=== PATIENT | female | born 1930 | race African-American/Black ===

== ENCOUNTER 2019-06-14 00:51 | Inpatient (IN) | payer OTHER ==
[~2019-06-14] VITALS: Ht 172.7 cm; Wt 75.1 kg
[2019-06-14 00:53] VITALS: BP 150/91
[2019-06-14] MEDS ORDERED: METFORMIN HCL500 M3 PO (01:06)
[2019-06-14] MEDS ORDERED: AMARYL2 MG PO (01:07)
[2019-06-14] MEDS ORDERED: LEVO-T50 MCG PO (01:08)
[2019-06-14] MEDS ORDERED: AMLODIPINE BESY10 MG PO (01:08)
[2019-06-14] MEDS ORDERED: KAPSPARGO SPRI100 MG PO (01:09)
[2019-06-14] MEDS ORDERED: SIMVASTATIN80 MG PO (01:10)
[2019-06-14] MEDS ORDERED: LOSARTAN POTAS100 MG PO (01:11)
[2019-06-14] MEDS ORDERED: ALLOPURINOL 10100 M3 PO (01:12)
[2019-06-14] MEDS ORDERED: AMITRIPTYLINE100 MG PO (01:12)
[2019-06-14] MEDS ORDERED: CLARITIN10 MG PO (01:12)
[2019-06-14] MEDS ORDERED: VENTOLIN HFA 1818 GM INH (01:13)
[2019-06-14] MEDS ORDERED: FLOVENT DISKU100 MCG INH (01:14)
[2019-06-14 01:15] LABS: ABSOLUTE EOSINOPHILS 0.4 thou/uL (0.0-0.7); ABSOLUTE LYMPHOCYTES 2.5 thou/uL (0.8-5.3); ABSOLUTE MONOCYTES 0.9 thou/uL (0.0-1.2); ABSOLUTE NEUTROPHILS 3.4 thou/uL (1.6-8.1); BASOPHILS 0.6 %; EOSINOPHILS 5.7 %; HEMATOCRIT 35.7 % (37.0-47.0); HEMOGLOBIN 11.8 gm/dL (12.0-15.0); MCH 28.4 pg (26.0-34.0); MCHC 32.9 g/dL (28.0-37.0); MCV 86.3 fL (80.0-100.0); MONOCYTES 13.1 %; MPV 7.6 fl. (7.2-11.1); NUCLEATED RBCS 0 /100WBC; PLATELET COUNT* 260 thou/uL (150-400); POLYS 46.6 %; RBC 4.14 mil/uL (4.20-5.00); RDW-CV 15.3 % (10.5-14.5); WBC 7.2 thou/uL (4.0-11.0)
[2019-06-14] MEDS ORDERED: VITAMIN B12-FO1 EAC1 PO (01:15)
[2019-06-14] MEDS ORDERED: SUPER THERAVIT1 EACH PO (01:15)
[2019-06-14] MEDS ORDERED: ASA81BEC PO (01:16)
[2019-06-14] MEDS ORDERED: CALCIUM500 MG PO (01:16)
[2019-06-14] MEDS ORDERED: NITROSTAT0.4 M1 SUBLING (01:17)
[2019-06-14] MEDS ORDERED: FLONASE 0.05%50 MCG NASAL (01:17)
[2019-06-14 01:25] LABS: CALCIUM 9.6 mg/dL (8.5-10.1); CREATININE 1.2 mg/dL (0.6-1.3); POTASSIUM 3.4 mmol/L (3.5-5.1)
[2019-06-14 01:28] LABS: PROTIME 10.2 Seconds (9.20-11.50)
[2019-06-14 01:35] LABS: ALBUMIN 3.6 g/dL (3.4-5.0); TOTAL BILIRUBIN 0.2 mg/dL (<0.1-1.0)
[2019-06-14 04:00] VITALS: BP 160/78
[2019-06-14 07:22] LABS: CHOLESTEROL 114 mg/dL (<200); HDL CHOLESTEROL 47 mg/dL (>40); LDL CHOLESTEROL 45 mg/dL (<100); TC:HDL 2.4 Ratio (Not establshd); TRIGLYCERIDE 111 mg/dL (<150); VLDL 22 mg/dL (<40)
[2019-06-14 07:24] LABS: SERUM ASSESSMENT Clear
[2019-06-14 08:00] VITALS: BP 143/69
[2019-06-14 11:48] VITALS: BP 145/71
--- NOTE | 2019-06-14 14:49 | EKG ---
[place] [address] ELECTROCARDIOGRAM REPORT Name: JOSE OKEEFE Room: [address] ADM IN .R.#: [id number] Admission: 06/14/19 Attend Phys: Nicole Gray MD Discharge: Date of : 34 Report #: [id number] THIS REPORT FOR: //name// [facility] ED Test Date: 2019-06-14 Test Time: 00:55:02 Pat Name: JSOE OKEEFE Department: Room: [facility] Gender: F Nsh Teacher: : 1930 Requested By: Lucrecia Perez Order Number: [id number] MD: Kt Sprague Measurements Intervals [place] Rate: 110 P: 60 CT: 179 QRS: -34 QRSD: 95 T: 77 QT: 334 QTc: 452 Interpretive Statements Sinus tachycardia Possible left atrial enlargement Left anterior fascicular block Left ventricular hypertrophy No previous ECG available for comparison Electronically Signed On 06-14-2019 14:49:22 SCANNING CLERK by Kt Sprague [email or web address] <ELECTRONICALLY SIGNED> By: Kt Sprague MD, [facility] 06/14/19 1449 0055 0055 Kt Sprague MD, FAC /EPI
[2019-06-14 16:00] VITALS: BP 111/60
[2019-06-14 20:00] VITALS: BP 118/62
[2019-06-15] VITALS: BP 132/61
[2019-06-15 04:00] VITALS: BP 139/64
[2019-06-15 05:14] LABS: HEMATOCRIT 32.5 % (37.0-47.0); HEMOGLOBIN 10.7 gm/dL (12.0-15.0); MCH 28.5 pg (26.0-34.0); MCV 86.5 fL (80.0-100.0); MPV 7.6 fl. (7.2-11.1); RBC 3.76 mil/uL (4.20-5.00); RDW-CV 15.3 % (10.5-14.5); WBC 5.4 thou/uL (4.0-11.0)
[2019-06-15 05:37] LABS: ANION GAP 8 mmol/L (7-16); BUN 16 mg/dL (7-18); CALCIUM 9.3 mg/dL (8.5-10.1); CHLORIDE 106 mmol/L (98-107); CO2 27 mmol/L (21-32); GLUCOSE 107 mg/dL (70-99); POTASSIUM 3.7 mmol/L (3.5-5.1); SODIUM 141 mmol/L (136-145); TROPONIN-I LEVEL <0.06 ng/mL (<0.06)
[2019-06-15 07:56] VITALS: BP 139/69
[2019-06-15 12:04] VITALS: BP 126/66
--- NOTE | 2019-06-15 13:25 | CON ---
[address] [address] CONSULTATION Name: JOSE OKEEFE Room: [address] IN M.R.#: [id number] Admission: 06/14/19 Attend Phys: Nicole Gray MD Discharge: Date of : 32 Report #: [id number] THIS REPORT FOR: //name// CC: James Gray DATE OF SERVICE: 06/14/2019 INDICATION: Chest pain. HISTORY OF PRESENT ILLNESS: The patient is an 88-year-old -I[place]ic female who reports a history of myocardial infarction on 03/12/2001. She reports at least 2 episodes of angiography. She is uncertain of any intervention done. The patient had chest fullness and shortness of breath yesterday. She got up to collect her nitroglycerin and aspirin when she fell at home. She was unable to get to her nitro and aspirin. She called her son who then came over, ultimately EMS was summoned. She was given a sublingual spray of nitroglycerin with relief of her chest pressure. She was brought to the hospital for further evaluation. Initial enzymes are unremarkable. EKG shows sinus rhythm with left anterior fascicular block. I do not appreciate acute ST segment abnormalities. At the time of interview, she is stable. CARDIAC RISK FACTORS: Include hypertension, type 2 diabetes mellitus and hyperlipidemia. PAST MEDICAL HISTORY: 1. Coronary artery disease. 2. Hypertension. 3. Type 2 diabetes mellitus. 4. Hyperlipidemia. 5. Osteoarthritis. 6. COPD. FAMILY HISTORY: Noncontributory. SOCIAL HISTORY: The patient is . She lives with her son. She does not smoke. She does not drink alcohol. ALLERGIES: CYNDIE INHIBITORS, CODEINE, COLCHICINE, HYDROCODONE, IBUPROFEN, PENICILLIN, SULFA AND IODINE. HOME MEDICATIONS: Albuterol 2 puffs q.6 hours p.r.n., allopurinol 100 mg daily, [place] [address] CONSULTATION Name: JOSE OKEEFE Room: [address]#: [id number] Admission: 06/14/19 Attend Phys: Nicole Gray MD Discharge: Date of : 32 Report #: [id number] Elavil 100 mg at bedtime, amlodipine 10 mg daily, aspirin 81 mg daily, calcium carbonate 500 mg daily, B12 with folic acid 1 tablet daily, fluticasone nasal spray b.i.d., Flovent Diskus 110 mcg b.i.d., glimepiride 2 mg daily, levothyroxine 50 mcg daily, loratadine 10 mg daily, losartan 100 mg daily, metformin 500 mg b.i.d., metoprolol succinate 100 mg daily, multivitamin 1 tablet daily, Nitrostat p.r.n., simvastatin 20 mg at bedtime. REVIEW OF SYSTEMS: On 14-point review of systems, she reports some weakness of her legs bilaterally, nonproductive cough. She has a history of emphysema. She reports chest discomfort and shortness of breath as outlined above. She has had some episodes of syncope and near syncope intermittently over the last several years. She has mild lower extremity edema. She reports anemia as a child. She reports seasonal allergies, medical allergies as outlined above. She has arthritis. She reports that she wears glasses without acute visual loss and wears dentures, otherwise, unremarkable. PHYSICAL EXAMINATION: VITAL SIGNS: Blood pressure 143/69, pulse 89 and regular. GENERAL: This is a very pleasant elderly female in no distress. Mood and affect appropriate. HEENT: The patient is wearing glasses. Extraocular muscles intact. Mucous membranes are moist. NECK: Shows no jugular venous distention. There are no carotid bruits. CHEST: Reveals clear lung herbert. CARDIAC: Reveals a regular rhythm with normal S1 and S2. I do not appreciate gallop or murmur. ABDOMEN: Reveals normal bowel sounds. The abdomen is soft, nontender. EXTREMITIES: Shows no significant edema at this time. SKIN: Dry. LABORATORY DATA: A 12-lead EKG shows sinus rhythm with left anterior fascicular block. There is voltage criteria for LVH. I do not appreciate acute ST or T-wave abnormalities. Labs are reviewed. Troponins are less than 0.06 on 2 separate occasions. Total cholesterol 114, triglycerides 111, HDL 47, LDL 45. Chest x-ray shows no acute cardiopulmonary abnormality. IMPRESSION AND RECOMMENDATIONS: 1. Chest discomfort suggestive of progressive/unstable angina. I would recommend noninvasive stress testing. 2. Coronary artery disease, presently on appropriate regimen as outlined above. Continue aspirin at this time. 3. Hyperlipidemia, at goal on current statin agent. 4. Hypertension. Blood pressure appears to be adequately controlled at this [address] [place] [address] CONSULTATION Name: JOSE OKEEFE Room: M.202-P ADM IN M.R.#: [id number] Admission: 06/14/19 Attend Phys: Nicole Gray MD Discharge: Date of : 32 Report #: [id number] time. 5. Diabetes per primary physician/hospitalist. <ELECTRONICALLY SIGNED> By: Kt Sprague MD, FACC 06/15/19 1325 1110 2244Micmaggy Sprague MD, FACC /nt
[2019-06-15 16:26] VITALS: BP 127/63
[2019-06-15 20:00] VITALS: BP 134/67
[2019-06-16] VITALS: BP 112/61
[2019-06-16 04:00] VITALS: BP 141/66
[2019-06-16 04:59] LABS: HEMATOCRIT 32.7 % (37.0-47.0); HEMOGLOBIN 10.8 gm/dL (12.0-15.0); MCH 28.3 pg (26.0-34.0); MCV 85.9 fL (80.0-100.0); MPV 8.4 fl. (7.2-11.1); RBC 3.81 mil/uL (4.20-5.00); RDW-CV 15.1 % (10.5-14.5); WBC 6.4 thou/uL (4.0-11.0)
[2019-06-16 05:20] LABS: ANION GAP 10 mmol/L (7-16); BUN 19 mg/dL (7-18); CALCIUM 9.5 mg/dL (8.5-10.1); CHLORIDE 105 mmol/L (98-107); CO2 26 mmol/L (21-32); CREATININE 1.1 mg/dL (0.6-1.3); GLUCOSE 96 mg/dL (70-99); MAGNESIUM 1.9 mg/dL (1.8-2.4); POTASSIUM 3.6 mmol/L (3.5-5.1); SODIUM 141 mmol/L (136-145); TROPONIN-I LEVEL <0.06 ng/mL (<0.06)
[2019-06-16 08:00] VITALS: BP 150/68
[2019-06-16] MEDS ORDERED: PROTONIX40 M4 PO (11:38)
--- NOTE | 2019-06-16 12:20 | 2DMMODE ---
[place] [address] 2 D/M-MODE ECHOCARDIOGRAM Name: JOSE OKEEFE Room: [address] IN R.#: [id number] Admission: 06/14/19 Attend Phys: Nicole Gray, Discharge: Date of : 32 Date of Service: 06/16/19 1220 Report #: [id number] THIS REPORT FOR: //name// APPROVED REPORT Study performed: 06/16/2019 09:10:22 EXAM: Comprehensive 2D, Doppler, and color-flow Echocardiogram Patient Location: Bedside BSA: 1.81 HR: 74 bpm BP: 141/66 mmHg Other Information Study Quality: Good Indications Chest Pain 2D Dimensions IVSd: 11.00 (7-11mm) LVOT Diam: 19.83 (18-24mm) LVDd: 39.44 mm PWd: 10.93 (7-11mm) Ascending Ao: 25.53 (22-36mm) LVDs: 25.74 (25-40mm) Aortic Root: 28.33 mm Volumes Left Atrial Volume (Systole) LA ESV Index: 13.80 mL/m2 Aortic Valve AoV Peak Lucas.: 1.00 m/s AO Peak Gr.: 4.02 mmHg LVOT Max P.46 mmHg AO Mean Gr.: 2.09 mmHg LVOT Mean P.07 mmHg LVOT Max V: 0.78 m/s AO V2 VTI: 18.12 cm LVOT Mean V: 0.47 m/s GRAYSON (VTI): 2.83 cm2 LVOT V1 VTI: 16.58 cm Mitral Valve E/A Ratio: 0.96 MV Decel. Time: 240.35 ms MV E Max Lucas.: 0.58 m/s MV PHT: 69.70 ms MVA (PHT): 3.16 cm2 [place] [address] 2 D/M-MODE ECHOCARDIOGRAM Name: JOSE OKEEFE Room: [address] IN .R.#: [id number] Admission: 06/14/19 Attend Phys: Nicole Gray, Discharge: Date of : 32 Date of Service: 06/16/19 1220 Report #: [id number] TDI E/Lateral E': 8.29 E/Medial E': 9.67 Medial E' Lucas.: 0.06 m/s Lateral E' Lucas.: 0.07 m/s Pulmonary Valve PV Peak Lucas.: 0.66 m/s PV Peak Gr.: 1.75 mmHg Tricuspid Valve RAP Estimate: 5.00 mmHg TR Peak Gr.: 24.87 mmHg RVSP: 29.87 mmHg PA Pressure: 29.87 mmHg Left Ventricle The left ventricle is normal size. There is normal LV segmental wall motion. There is normal left ventricular wall thickness. Left ventricular systolic function is normal. The left ventricular ejection fraction is within the normal range. LVEF is 60-65%. Grade I - abnormal relaxation pattern. Right Ventricle The right ventricle is normal size. The right ventricular systolic function is normal. Atria The left atrium size is normal. The right atrium size is normal. Aortic Valve The Aortic valve is sclerotic. No aortic regurgitation is present. There is no aortic valvular stenosis. Mitral Valve The mitral valve is normal in structure. trace mitral regurgitation. No evidence of mitral valve stenosis. Tricuspid Valve The tricuspid valve is normal in structure. Trace tricuspid regurgitation. Pulmonic Valve The pulmonary valve is normal in structure. There is no pulmonic valvular regurgitation[place] [address] 2 D/M-MODE ECHOCARDIOGRAM Name: JOSE OKEEFE Room: [address]#: [id number] Admission: 06/14/19 Attend Phys: Nicole Gray, Discharge: Date of : 32 Date of Service: 06/16/19 1220 Report #: [id number] The aortic root is normal in size. IVC is normal in size and collapses >50% with inspiration. Pericardium There is no pericardial effusion. <Conclusion> LVEF is 60-65%. The Aortic valve is sclerotic. <ELECTRONICALLY SIGNED> By: Ab Magdaleno MD, FACC 06/16/19 1220 1220 Ab Magdaleno MD, FACC /INF
--- NOTE | 2019-06-16 14:42 | CARDNUC ---
[place] [address] CARDIAC NUCLEAR IMAGING REPORT Name: JOSE OKEEFE Room: [address] IN [facility]#: [id number] Admission: 06/14/19 Attend Phys: Nicole Gray, Discharge: Date of : 32 Date of Service: 06/16/19 1441 Report #: [id number] THIS REPORT FOR: //name// APPROVED REPORT Study performed: 06/14/2019 11:11:00 Indication: Chest pain, Syncope, Fall. Patient Location: In-Patient Room #: 202 Stress Tech: Monik Sorensen Stress Nurse: Ev Francisco RN Ht: 5 ft 8 in Wt: 155 lbs BSA: 1.83 m2 BMI: 23.56 Medical History Medical History: Angina, CAD s/p MT, Angioplasty, COPD, Diabetic Insulin, Fatigue, HTN, Hyperlipidemia, Weakness, Syncope/Near Syncope. Medications: Amlodipine, ASA 81 MG, Losartan, Metoprolol, Metformin, Glimepiride, Insulin, Atorvastatin, NTG. Allergies: CYNDIE-I, Codeine, Colchicine, Hydrocodone, Ibuprofen, Penicillins, Sulfa ABT, Iodine, Trimethoprim. Cardiac Risk Factors: Age, Diabetes (insulin), FHX of CAD, HTN, Hyperlipidemia. Previous Cardiac Procedures: Myocardial infarction, Angioplasty. Pretest Chest Pain Characteristics: No chest pain Exercise History: Sedentary Physical Disabilities: Cane user, Unstable, weak gait, recent fall. Meds Held (24 hrs): NTG, Metoprolol. Resting Data Rest SPECT myocardial perfusion imaging was performed in supine position 60 minutes following the intravenous injection of 11.0 mCi of Tc-99m Sestamibi. Time of rest injection: 10:15 The images were gated to evaluate regional wall motion and calculate left ventricular ejection fraction. Administration Route: IV Administration Site: [place] [address] CARDIAC NUCLEAR IMAGING REPORT Name: JOSE OKEEFE Room: [address]#: [id number] Admission: 06/14/19 Attend Phys: Nicole Gray, Discharge: Date of : 32 Date of Service: 06/16/19 1441 Report #: [id number] Pharmacologic stress test was performed by injecting Regadenoson 0.4 mg IV push over 10-15 seconds immediately followed by the intravenous injection of 33.0 mCi of Tc-99m Sestamibi. Time of stress injection: 12:05 Administration Route: IV Administration Site: Left AC Heart Rate at time of stress injection: 98 bpm. Gated Stress SPECT was performed 45 minutes after stress injection. The images were gated to evaluate regional wall motion and calculate left ventricular ejection fraction. Stress Test Details Stress Test: Pharmacologic stress testing performed using 0.4 mg of regadenoson per 5 mL given IV over 10 seconds. Reason for pharmacologic stress test: Unstable, weak gait, cane user, recent fall.. HR Max Heart Rate (APMHR): 134 bpm Resting HR: 78 bpm Target HR (85% APMHR): 113 bpm Max HR Achieved: 106 bpm % of APMHR: 79 Recovery HR: 100 bpm BP Resting BP: 152/80 mmHg Max BP: 137/63 mmHg Recovery BP: 153/75 mmHg ECG Resting ECG: Sinus Rhythm Stress ECG: Sinus Rhythm ST Change: None Arrhythmia: None Recovery ECG: Sinus Rhythm Recovery ST Change: None Clinical Reason for Termination: Completed protocol Stress Symptoms: Lightheaded, Mild Chest Pressure. Exercise duration: 00 min 00 sec Exercise capacity: 1.00 METs The patient tolerated Lexiscan infusion without significant cardiac symptoms. Nurse Comments An 89 year old female presented for a sitting Lexiscan r/[place] [address] CARDIAC NUCLEAR IMAGING REPORT Name: JOSE OKEEFE Room: [address]#: [id number] Admission: 06/14/19 Attend Phys: Nicole Gray, Discharge: Date of : 32 Date of Service: 06/16/19 1441 Report #: [id number] with possible syncope and a noninjury fall. Patient tolerated test well. Recovery unremarkable with PO caffeine, effective. Patient was escorted via wheelchair by staff to Nuclear Medicine for images. Patient was stable and stated she felt good at that time. Stress ECG Conclusion The baseline 12-lead EKG show sinus rhythm without significant ST segment or T wave abnormality. EKGs obtained during Lexiscan infusion and post show sinus rhythm with no significant ST segment or T wave changes when compared to baseline. There were no significant stress-induced arrhythmias. Study Quality Study: Good Artifact: No artifact Study Data At rest, the left ventricular ejection fraction was 61%.. Post stress, the left ventricular ejection was 56%.. TID = 0.99. Perfusion There is a moderate size mild intensity reversible defect involving the lateral wall. No other significant fixed or reversible defects were identified. Wall Motion Global LV systolic function is preserved. There is some mild septal hypokinesis noted. Nuclear Conclusion ECG Findings: negative for ischemia Clinical Findings: negative for ischemia Nuclear Findings: positive for ischemia Exercise Capacity: not assessed Left Ventricular Function: preserved Risk Study: moderate Perfusion images suggest a moderate size area of ischemia involving the lateral wall. Global LV systolic function is fairly well-preserved. This is a moderate risk study. <Conclusion> The baseline 12-lead EKG show sinus rhythm without significant ST segment or T wave abnormality. EKGs obtained during Lexiscan infusion and post show sinus rhythm with no significant ST [place] [address] CARDIAC NUCLEAR IMAGING REPORT Name: JOSE OKEEFE Room: [address] IN ..#: [id number] Admission: 06/14/19 Attend Phys: Nicole Gray, Discharge: Date of : 32 Date of Service: 06/16/19 1441 Report #: [id number] changes when compared to baseline. There were no significant stress-induced arrhythmias. <ELECTRONICALLY SIGNED> By: Kt Sprague MD, FACC 06/16/19 144 40 40 Kt Sprague MD, FACC /INF
[2019-06-16 16:06] VITALS: BP 137/82
[2019-06-16 18:42] LABS: CALCIUM 9.5 mg/dL (8.5-10.1); CREATININE 1.1 mg/dL (0.6-1.3); POTASSIUM 3.5 mmol/L (3.5-5.1)
[2019-06-16 19:30] VITALS: BP 142/72
[2019-06-17] VITALS: BP 123/78
[2019-06-17 04:00] VITALS: BP 129/61
[2019-06-17 16:00] VITALS: BP 152/74
--- NOTE | 2019-06-17 17:07 | CARD ---
[address] [address] CARDIAC CATH REPORT Name: JOSE OKEEFE Room: [address] IN .R.#: [id number] Admission: 06/14/19 Attend Phys: Nicole Gray MD Discharge: Date of : 32 Report #: [id number] THIS REPORT FOR: //name// APPROVED REPORT Study performed: 06/17/2019 08:28:45 Patient Details Patient Status: In-Patient Room #: The patient is a 89 year-old female Event Personnel Kt Sprague Pressurizer, Mary Mccall RN Resident Service Coordinator, Annia Christensen RTR Monitor, Sachin Sousa RTR Scrub Procedures Performed Art Access - R femoral artery, Left Heart Cath w/or w/o Coronaries , LHC Hemostasis w/ Mynx Admission/Lab Medications/Medications given during procedure Oxygen Nasal cannula 2 l per min, Lidocaine Subcut 18 ml, Midazolam (Versed) IV 1 mg Procedure Narrative The patient was brought electively to the Cardiac Catheterization Laboratory and was prepped and draped in a sterile manner. The right femoral groin area was infiltrated with 2% Lidocaine subcutaneous anesthesia. A 6fr Ultimum Sheath sheath was inserted into the right femoral artery. Coronary angiography was performed using coronary diagnostic catheters. The right coronary system was accessed and visualized with a 6F JR4 catheter. The left coronary system was accessed and visualized with a 6F JL4 catheter. The left ventricle was accessed and visualized with a 6F Pigtail catheter. Closure device was deployed with a Fr Mynx 6Fr/7Fr. The patient tolerated the procedure well and there were no complications associated with the procedure. Intraoperative Conscious Sedation Sedation start time: 09:36 Case end Time: 09:48 Versed 1 mg Fluoro Time: 2.1 minutes Dose: DAP 92174 cGycm2 575 mGy Contrast Type and Amount: Visip[place] [address] [place] [address] CARDIAC CATH REPORT Name: JOSE OKEEFE Room: [address] IN [facility].#: [id number] Admission: 06/14/19 Attend Phys: Nicole Gray MD Discharge: Date of : 32 Report #: [id number] Coronary Angiography The patient's coronary anatomy is right dominant. Diagnostic Cath Left Main Natty; LAD 20% narrowing proximally. The vessel is otherwise free of disease. Diagonal 1 10% narrowing in the midportion. Circumflex 10% plaquing proximal. The remainder the vessel is free of significant disease. OM1 Normal. OM2 Normal. Right Coronary 10% plaquing proximally. The remainder the vessel is free of significant disease. R PDA Normal. RPLV Normal. Left Ventriculography The left ventricle is normal in size with normal contractility. The left ventricular ejection fraction is estimated to be 65%. Hemodynamics The aortic pressure is 155/59 mmHg with a mean of 95 mmHg. The left ventricular pressure is 145/3 mmHg with a mean of mmHg. The left ventricular end diastolic pressure is 20 mmHg. Conclusion 1. Minimal coronary artery disease as outlined above. 2. Normal left ventricular systolic function. 3. Minimally elevated left ventricular end-diastolic pressure. Recommendations 1. Continue medical management and aggressive risk factor modification. <ELECTRONICALLY SIGNED> By: Kt Sprague MD, [facility] 06/17/191706 06 06Micmaggy Sprague MD, FACC /INF
[2019-06-17 20:00] VITALS: BP 106/67
[2019-06-18] VITALS: BP 141/64
[2019-06-18 04:00] VITALS: BP 134/64
[2019-06-18 08:00] VITALS: BP 128/68
[2019-06-18 10:14] VITALS: BP 128/68
[2019-06-18 11:11] VITALS: BP 128/68
--- NOTE | 2019-06-18 14:09 | EKG ---
[place] [address] ELECTROCARDIOGRAM REPORT Name: JOSE OKEEFE Room: [address] IN M.R.#: [id number] Admission: 06/14/19 Attend Phys: Nicole Gray MD Discharge: 06/18/19 Date of : 32 Report #: [id number] THIS REPORT FOR: //name// [facility] Test Date: 2019-06-18 Test Time: 05:04:28 Pat Name: JOSE OKEEFE Department: Room: [address] Gender: F Vp Of Technology: ELLIOTT : 1930 Requested By: Nicole Gray Order Number: [id number] Reading MD: Pasquale Bolden Measurements Intervals [place] Rate: 73 P: 69 LA: 187 QRS: -30 QRSD: 99 T: 18 QT: 400 QTc: 441 Interpretive Statements Sinus rhythm Probable left atrial enlargement Left ventricular hypertrophy Anterior Q waves, possibly due to LVH Compared to ECG 06/14/2019 00:55:02 Q waves now present Sinus tachycardia no longer present Electronically Signed On 06-18-2019 14:08:22 DIRECTOR OF PROMOTIONS by Pasquale Bolden [email or web address] <ELECTRONICALLY SIGNED> By: Pasquale Bolden MD, [facility] 06/18/19 1408 0504 0504 Pasquale Bolden MD, [facility] /EPI
== END 2019-06-18 12:58 | disposition home health service (06) | DRG 286 ==
LOC: M.ERS 00:51 → M.TBA-ER 02:47 → M.2W 02:47
PROVIDERS: Personal Emergency Response Attendant; Registered Nurse; ADMIT Internal Medicine
PROC: B2111ZZ Fluoroscopy of Multiple Coronary Arteries using Low Osmolar Contrast (ICD-10-PCS; principal; 2019-06-17)
PROC: B2151ZZ Fluoroscopy of Left Heart using Low Osmolar Contrast (ICD-10-PCS; principal; 2019-06-17)
PROC: 4A023N7 Measurement of Cardiac Sampling and Pressure, Left Heart, Percutaneous Approach (ICD-10-PCS; principal; 2019-06-17)
DX: I25.111 Atherosclerotic heart disease of native coronary artery with angina pectoris with documented spasm (principal); I50.33 Acute on chronic diastolic (congestive) heart failure; J44.9 Chronic obstructive pulmonary disease, unspecified; E11.9 Type 2 diabetes mellitus without complications; F03.90 Unspecified dementia, unspecified severity, without behavioral disturbance, psychotic disturbance, mood disturbance, and anxiety; E78.5 Hyperlipidemia, unspecified; I11.0 Hypertensive heart disease with heart failure; M19.90 Unspecified osteoarthritis, unspecified site; R13.10 Dysphagia, unspecified; I35.0 Nonrheumatic aortic (valve) stenosis; K21.9 Gastro-esophageal reflux disease without esophagitis; Z79.82 Long term (current) use of aspirin; Z79.84 Long term (current) use of oral hypoglycemic drugs; I25.2 Old myocardial infarction; Z79.899 Other long term (current) drug therapy; Z88.1 Allergy status to other antibiotic agents; Z88.5 Allergy status to narcotic agent; Z88.8 Allergy status to other drugs, medicaments and biological substances

== ENCOUNTER 2019-06-22 07:13 | Inpatient (IN) | payer OTHER ==
[~2019-06-22] VITALS: Ht 172.7 cm; Wt 73.9 kg
[~2019-06-22 07:13] MED LIST: ALLOPURINOL 10100 M3 PO; AMARYL2 MG PO; AMITRIPTYLINE100 MG PO; AMLODIPINE BESY10 MG PO; ASA81BEC PO; CALCIUM500 MG PO; CLARITIN10 MG PO; FLONASE 0.05%50 MCG NASAL; FLOVENT DISKU100 MCG INH; KAPSPARGO SPRI100 MG PO; LEVO-T50 MCG PO; LOSARTAN POTAS100 MG PO; METFORMIN HCL500 M3 PO; NITROSTAT0.4 M1 SUBLING; PROTONIX40 M4 PO; SIMVASTATIN80 MG PO; SUPER THERAVIT1 EACH PO; VENTOLIN HFA 1818 GM INH; VITAMIN B12-FO1 EAC1 PO
[2019-06-22 07:16] VITALS: BP 192/88
[2019-06-22] MEDS ORDERED: ZOLOFT50 M1 PO (07:24)
[2019-06-22 08:22] LABS: ABSOLUTE EOSINOPHILS 0.2 thou/uL (0.0-0.7); ABSOLUTE MONOCYTES 0.9 thou/uL (0.0-1.2); ABSOLUTE NEUTROPHILS 5.2 thou/uL (1.6-8.1); BASOPHILS 0.5 %; HEMATOCRIT 32.5 % (37.0-47.0); HEMOGLOBIN 10.9 gm/dL (12.0-15.0); LYMPHOCYTES 13.2 %; MCH 28.7 pg (26.0-34.0); MCHC 33.7 g/dL (28.0-37.0); MCV 85.3 fL (80.0-100.0); MONOCYTES 12.2 %; MPV 7.6 fl. (7.2-11.1); NUCLEATED RBCS 0 /100WBC; PLATELET COUNT* 256 thou/uL (150-400); POLYS 71.1 %; RBC 3.81 mil/uL (4.20-5.00); WBC 7.3 thou/uL (4.0-11.0)
[2019-06-22 08:33] LABS: CALCIUM 9.2 mg/dL (8.5-10.1); POTASSIUM 3.4 mmol/L (3.5-5.1)
[2019-06-22 08:38] LABS: ALBUMIN 3.4 g/dL (3.4-5.0); TOTAL BILIRUBIN 0.4 mg/dL (<0.1-1.0); TOTAL PROTEIN 8.2 g/dL (6.4-8.2)
[2019-06-22 09:06] LABS: URINE BILIRUBIN NEGATIVE (Negative); URINE BLOOD NEGATIVE (Negative); URINE CLARITY CLEAR; URINE COLOR YELLOW; URINE GLUCOSE-RANDOM NEGATIVE (Negative); URINE KETONES NEGATIVE (Negative); URINE LEUKOCYTES-REFLEX 1+ (Negative); URINE PROTEIN NEGATIVE (Negative); URINE SPECIFIC GRAVITY 1.015 (1.005-1.030); URINE UROBILINOGEN 0.2 E.U./dl (0.2-1.0)
[2019-06-22 09:07] LABS: URINE NITRITE-REFLEX POSITIVE (Negative)
[2019-06-22 09:14] LABS: AMP/METHAMP Negative (Negative); BACTERIA-REFLEX >30 Many /HPF (None Seen); BARBITURATES Negative (Negative); BENZODIAZEPINES Negative (Negative); CASTS None Seen /LPF (None Seen); COCAINE Negative (Negative); CRYSTALS None Seen /LPF (None Seen); METHADONE Negative (Negative); MUCUS None Seen strn/LPF (None Seen); OPIATES Negative (Negative); PCP Negative (Negative); SQUAMOUS 4-10 Moderate /LPF (0-3); THC Negative (Negative); URINE RBC 0-2 Rare /HPF (0-2); URINE WBC-REFLEX 0-5 Rare /HPF (0-5)
--- NOTE | 2019-06-22 09:55 | NUR ---
RECEIVED PERMISSION TO CALL RITCHIE MAIER, SISTER RELATION TO PATIENT TO DISCUSS MEDICAL POC. RITCHIE MAIER GAVE NUMBER OF DANNI LOPEZ DPOA OF PT FOR FACILITY TO CALL. PT STATES SHE IS OF SOUND MIND AND MAKES ALL OF HER HEALTH CARE DECISIONS AND STATES VERBAL CONSENT UPOMN ARRIVAL TO ER. ABLE TO MAKE CONTACT WITH DANNI LOPEZ AT 0952 AND VERBALIZED CONSENT OVER THE PHONE TO TREAT JOSE OKEEFE.
--- NOTE | 2019-06-22 09:58 | NUR ---
PATIENT STATES CAREGIVER IS KEEPING HER MEDICATION FROM HER AND NOT ALLOWING HER TO HAVE CONTACT WITH HER FAMILY, HIDES MEDICATION IN HER BRA. OBSERVED A ZIPLOCK FULL OF WHITE AND GREEN PILLS SHE SAYS SHE HAS BEEN HOARDING. PATIENT STATES SHE HAS NOT BEEN GIVEN HER MEDICATION. SHE STATES CAREGIVER STATES TO HER THAT THERE IS NOTHING SHE CAN DO TO IT. SHE STATES NO ONE IS LISTENING TO HER AND SHE MAKES ALL HER OWN HEALTH CARE DECISIONS AND SHE IS OF SOUND MIND
[2019-06-22 13:36] VITALS: BP 147/81
[2019-06-22 14:15] VITALS: BP 161/86
[2019-06-22 15:59] VITALS: BP 164/78
[2019-06-22 20:00] VITALS: BP 146/71
--- NOTE | 2019-06-22 20:34 | NUR ---
VSS, MED SURG STATUS, PT A&OX4, PATIENT UP WITH ONE, PATIENT ORIENTED TO ROOM. PATIENT POSSESSIONS AND CALL LIGHT WITHIN REACH. PATIENT MEDS SEALED AND TAKEN TO PHARMACY FOR STORAGE. PURE WICK IN USE.
[2019-06-23] VITALS: BP 153/66
[2019-06-23 04:00] VITALS: BP 128/58
[2019-06-23 08:45] VITALS: BP 157/65
--- NOTE | 2019-06-23 09:06 | EKG ---
[place] [address] ELECTROCARDIOGRAM REPORT Name: JOSE OKEEFE Room: [address] ADM IN .R.#: [id number] Admission: 06/22/19 Attend Phys: Shravan Ambrosio Discharge: Date of : 34 Report #: [id number] THIS REPORT FOR: //name// [facility] ED Test Date: 2019-06-22 Test Time: 08:19:56 Pat Name: JOSE OKEEFE Department: Room: [facility] Gender: F Photographer Model: : 1930 Requested By: Lucrecia Perez Order Number: [id number] MD: Ab Magdaleno Measurements Intervals [place] Rate: 116 P: 83 MD: 166 QRS: -31 QRSD: 94 T: 43 QT: 341 QTc: 474 Interpretive Statements Sinus tachycardia Ventricular premature complex Probable left atrial enlargement LVH with secondary repolarization abnormality Anterior Q waves, possibly due to LVH Compared to ECG 06/18/2019 05:04:28 Ventricular premature complex(es) now present Early repolarization now present Sinus rhythm no longer present Electronically Signed On 06-23-2019 9:05:46 CLINICAL ADMINISTRATIVE COORDINATOR by Ab Magdaleno [email or web address] <ELECTRONICALLY SIGNED> By: Ab Magdaleno MD, FACC 06/23/19904 8 8 Ab Magdaleno MD, FAC /EPI
[2019-06-23 13:20] VITALS: BP 129/81
--- NOTE | 2019-06-23 13:23 | NUR ---
Pt is A&O. Dtr in room at bedside. Pt was just inpt and dc to home with [facility] on 06/18. CM learned today that the "son" that Pt resides with is not a biological son, but rather an ex boyfriend of Pt's dtr. Per Pt, son no longer wants her to live in his home. Per dtr, she had tried to get Pt to move with her to [place] a while ago, but Pt refused, but is now in agreement once everything is arranged. CM to try and get Pt to skilled, informed Pt/dtr that it would be contingent upon therapy evals. Therapies ordered. Pt uses a cane for mobility. Following.
[2019-06-23 20:19] VITALS: BP 136/54
[2019-06-24 00:30] VITALS: BP 142/64
[2019-06-24 04:26] LABS: HEMATOCRIT 30.2 % (37.0-47.0); HEMOGLOBIN 10.1 gm/dL (12.0-15.0); MCH 28.6 pg (26.0-34.0); MCHC 33.6 g/dL (28.0-37.0); MCV 85.1 fL (80.0-100.0); MPV 7.6 fl. (7.2-11.1); RBC 3.54 mil/uL (4.20-5.00); RDW-CV 14.7 % (10.5-14.5); WBC 6.2 thou/uL (4.0-11.0)
[2019-06-24 04:34] LABS: CALCIUM 9.4 mg/dL (8.5-10.1); CREATININE 1.1 mg/dL (0.6-1.3); MAGNESIUM 1.6 mg/dL (1.8-2.4); POTASSIUM 3.7 mmol/L (3.5-5.1)
--- NOTE | 2019-06-24 06:01 | NUR ---
PT IS ABLE TO COMMUNICATE HER NEEDS TO STAFF EFFECTIVELY. CURRENT PAIN MEDICATION REGIMEN HAS BEEN ADEQUATE FOR CONTROLLING HER PAIN UP TO THIS TIME. MED/SURG, NON-MONITOR, STATUS. POSSIBLE DISCHARGE LATER TODAY.
[2019-06-24 08:24] VITALS: BP 147/77
--- NOTE | 2019-06-24 10:30 | NUR ---
MET WITH PT'S DTR, DISCUSSED DPOA AND GAVE FORM. DTR ASKED ABOUT GETTING A FINANCIAL, GAVE HER GUIDANCE WHERE TO FIND BUT THAT CM NOT ABLE TO ASSIST. DTR ALSO TALKING ABOUT POSSIBLE INDP LIVING APT PLACEMENT NOW AND PLANS TO VISIT SOME BUILDINGS THAT FAMILY LIVE IN. WILL FOLLOW
--- NOTE | 2019-06-24 13:40 | NUR ---
ASSUMED CARE OF PT APPROX 0730. REASSESSMENT COMPLETED CHARTED. MEDICATIONS GIVEN CHARTED. SAFETY PRECAUTIONS UTILIZED, HOURLY ROUNDING FOR SAFETY. DISCUSSED CARE WITH CEMENT STORAGE WORKER. DISCUSSED CARE WITH PT AND PTS DAUGHTER. PT VERBALIZED UNDERSTANDING. PT CALLS OUT FOR NEEDS.
[2019-06-24 15:45] VITALS: BP 147/77
[2019-06-24 19:38] VITALS: BP 134/55
[2019-06-24 20:00] VITALS: BP 120/50
[2019-06-25] VITALS: BP 124/49
--- NOTE | 2019-06-25 01:49 | NUR ---
PT ALERT ORIENTED. AMBULATES TO BR WITH WALKER AND STAND BY ASSIST. PT VOIDED IN BR. PT IS MED SURG STATUS. ON RA.
[2019-06-25 04:00] VITALS: BP 128/50
[2019-06-25 08:00] VITALS: BP 145/73
[2019-06-25 12:53] VITALS: BP 121/59
[2019-06-25 16:00] VITALS: BP 135/65
--- NOTE | 2019-06-25 17:29 | NUR ---
PT REMAINED ALERT AND ORIENTED. PT RESTING IN BED. PT DENIES ANY NEEDS AT THIS TIME. FALL RISK PRECAUTIONS IN PLACE. HOURLY ROUNDING COMPLETED. WILL CONTINUE TO MONITOR.
[2019-06-25 23:49] VITALS: BP 140/69
--- NOTE | 2019-06-26 05:33 | NUR ---
PATIENT STANDBY WITH WALKER, ON ROOM AIR. NO SIGNS OF CONFUSION OR WORSENING OF CONDITION. NO REQUEST FOR PAIN MEDICATION. PLAN TO D/C TO SNF ONCE PLACEMENT IS COMPLETE. WILL CONTINUE TO FOLLOW PLAN OF CARE.
[2019-06-26 08:35] LABS: HEMOGLOBIN 10.7 gm/dL (12.0-15.0); MCH 28.4 pg (26.0-34.0); MCHC 33.4 g/dL (28.0-37.0); MPV 7.3 fl. (7.2-11.1); RBC 3.76 mil/uL (4.20-5.00); RDW-CV 14.7 % (10.5-14.5); WBC 6.8 thou/uL (4.0-11.0)
[2019-06-26 08:42] LABS: CALCIUM 9.4 mg/dL (8.5-10.1); CREATININE 1.1 mg/dL (0.6-1.3); POTASSIUM 3.9 mmol/L (3.5-5.1)
[2019-06-26 08:50] VITALS: BP 132/68
--- NOTE | 2019-06-26 14:12 | NUR ---
SW met with pt dtr and with pt to discuss dc planning. Pt dtr and SW spoke at length about options for SNF, ILF, senior apts, ALFs. SW provided Senior Blue book and SNF listing. Pt/family preference for SNF is [facility] or [facility]; SW faxed referral to both facilities. Pt dtr said she was going to tour facilities today for future living options as well. SW/CM to continue to follow to assist with safe dc planning.
[2019-06-26 16:01] VITALS: BP 130/61
--- NOTE | 2019-06-26 19:00 | NUR ---
PATIENT PLEASANT AND COOPERATIVE W/ ASSESS AND CARES THRU SHIFT. HRLY ROUNDS DONE. ~TJRN
[2019-06-26 20:30] VITALS: BP 127/57
--- NOTE | 2019-06-27 03:49 | NUR ---
PATIENT HAS REMAINED ALERT AND ORIENTED X 4 THROUGHOUT THE SHIFT AND RESTING QUIETLY ON HOURLY ROUNDS. APPROPRIATELY CALLING FOR ASSIST TO BR. UP WITH CGA AND WALKER. VITAL SIGNS STABLE WITHOUT FEVER. DENIES NAUSEA. FIRST DOSE OF ORAL ANTIBIOTICS THIS PAST HS. CONTINUE TO MONITOR.
--- NOTE | 2019-06-27 06:17 | NUR ---
NO CHANGE FROM PREVIOUS ENTRY.
[2019-06-27] MEDS ORDERED: CIPRO500 MG PO (08:28)
[2019-06-27] MEDS ORDERED: FLOMAX0.4 MG PO (08:28)
[2019-06-27] MEDS ORDERED: LIDOPATCH1 EACH TOP (08:28)
[2019-06-27] MEDS ORDERED: CYCLOBENZAPRINE10 MG PO (08:28)
[2019-06-27 09:30] VITALS: BP 142/69
--- NOTE | 2019-06-27 10:55 | NUR ---
RENY F/U Dulce Maria/LETHA @ [facility] RE: INSUR AUTH. PER FRANK STILL AWAITING AUTH.
--- NOTE | 2019-06-27 12:23 | NUR ---
DPOA completed, copy placed on Pt's chart.
--- NOTE | 2019-06-27 19:00 | NUR ---
PATIENT PLEASANT AND COOPERATIVE THRU SHIFT. EATING WELL. DTR PRESENT AT TIMES THRU SHIFT. CM IN TO SEE PATIENT TODAY TO REVIEW DISCHARGE POC. IV CATH SITE NOTED WNL. HRLY ROUNDS DONE. ~FELIRN
[2019-06-27 19:28] VITALS: BP 137/49
--- NOTE | 2019-06-28 03:13 | NUR ---
ASSUMED CARE OF PT 06/27/19 AT APPROX 1930, PT A&OX4, ROOM AIR, VSS, PT SLEEPING WELL, ASSESSMENTS AND HOURLY ROUNDINGS COMPLETED, WILL CONTINUE TO MONITOR.
[2019-06-28 07:48] VITALS: BP 138/69
[2019-06-28 14:12] LABS: ABSOLUTE EOSINOPHILS 0.3 thou/uL (0.0-0.7); ABSOLUTE LYMPHOCYTES 1.3 thou/uL (0.8-5.3); ABSOLUTE MONOCYTES 0.9 thou/uL (0.0-1.2); ABSOLUTE NEUTROPHILS 5.7 thou/uL (1.6-8.1); BASOPHILS 0.4 %; EOSINOPHILS 3.4 %; HEMATOCRIT 31.2 % (37.0-47.0); HEMOGLOBIN 10.4 gm/dL (12.0-15.0); LYMPHOCYTES 16.3 %; MCH 28.6 pg (26.0-34.0); MCHC 33.4 g/dL (28.0-37.0); MCV 85.5 fL (80.0-100.0); MONOCYTES 11.4 %; MPV 7.5 fl. (7.2-11.1); NUCLEATED RBCS 0 /100WBC; PLATELET COUNT* 316 thou/uL (150-400); POLYS 68.5 %; RBC 3.65 mil/uL (4.20-5.00); RDW-CV 15.1 % (10.5-14.5); WBC 8.3 thou/uL (4.0-11.0)
[2019-06-28 14:25] LABS: ALBUMIN 2.9 g/dL (3.4-5.0); CALCIUM 9.1 mg/dL (8.5-10.1); CREATININE 1.1 mg/dL (0.6-1.3); POTASSIUM 4.3 mmol/L (3.5-5.1); TOTAL BILIRUBIN 0.2 mg/dL (<0.1-1.0); TOTAL PROTEIN 7.4 g/dL (6.4-8.2)
[2019-06-28 16:00] VITALS: BP 128/63
--- NOTE | 2019-06-28 17:09 | NUR ---
PT IS A&Ox4. VITALS STABLE. IV PATENT. UP STAND BY. WALKED HALLS WITH THERAPY USING CANE. TOLERATING DIET. FALL PRECAUTIONS IN PLACE. CALL LIGHT WITHIN REACH. WILL CONTINUE TO MONITOR.
[2019-06-28 19:37] VITALS: BP 145/94
--- NOTE | 2019-06-29 05:19 | NUR ---
PATIENT ABLE TO AMBULATE TO RESTROOM WILL CALL FOR ASSISTANCE. NO REPORTS OF NAUSEA OR PAIN. VITALS STABLE AND NO WORSENING OF SYMPTOMS. STILL AWAITING PLACEMENT TO SNF. WILL CONTINUE PLAN OF CARE.
[2019-06-29 07:42] VITALS: BP 140/63
--- NOTE | 2019-06-29 17:51 | NUR ---
PT A&Ox4. VITALS STABLE. UP STAND BY. TOLERATING DIET. DENIED PAIN. DENIED N/V. FALL PRECAUTIONS IN PLACE. CALL LIGHT WITHIN REACH. WILL CONTINUE TO MONITOR.
[2019-06-29 19:40] VITALS: BP 137/65
--- NOTE | 2019-06-30 04:40 | NUR ---
PATIENT SLEPT THROUGH SHIFT. TOOK ALL MEDS SCHEDULED BEFORE BEDTIME. IS ABLE TO AMBULATE TO RESTROOM. NO REPORTS OF PAIN OR NAUSEA. PLAN IS TO D/C TO SNF WHEN AVAILABLE/HOURLY ROUNDS DONE. WILL CONTINUE TO FOLLOW PLAN OF CARE.
[2019-06-30 08:30] VITALS: BP 141/72
--- NOTE | 2019-06-30 10:18 | NUR ---
trey left message w/max at [facility] re insur auth. spk w/harry at [facility] re approval/capacity, per harry she will have soy contact trey as she was reveiwing referral.
--- NOTE | 2019-06-30 10:57 | NUR ---
soy from [facility] stated before making a decision as to whether they can accep pt she will need to know pt middle or intermediate school principal living arrangement b/c she doesnt have middle or intermediate school principal care beds avial for pt once pt has completed therapy.
--- NOTE | 2019-06-30 16:34 | NUR ---
per OT note, pt was unaviable when they went to her room. trey munoz/baldev and she stated she cannot have ot see pt again today but will have someone see pt in the morning.
[2019-06-30 17:02] VITALS: BP 126/60
--- NOTE | 2019-06-30 18:44 | NUR ---
PATIENT AWAKE IN BED. PATIENT AMBULATING WITH ASSISTANCE, CANE, AND GAIT BELT TO BATHROOM TODAY. ALL SAFETY MEASURES MAINTAINED. PATIENT DENIES FURTHER NEEDS AT THIS TIME.
[2019-06-30 20:00] VITALS: BP 142/66
--- NOTE | 2019-07-01 05:20 | NUR ---
ASSUMED CARES AT 1920. ALERT AND ORIENTED. PLEASANT. TRAMADOL GIVEN FOR RIGHT KNEE ARTHRITIC PAIN. SBA WITH GAIT BELT AND CANE. UP TO BATHROOM. SALINE LOCK LEFT FOREARM. SLEPT WELL. CALL LIGHT IN REACH.
[2019-07-01 05:29] LABS: ABSOLUTE BASOPHILS 0.1 thou/uL (0.0-0.2); ABSOLUTE EOSINOPHILS 0.3 thou/uL (0.0-0.7); ABSOLUTE LYMPHOCYTES 1.3 thou/uL (0.8-5.3); ABSOLUTE MONOCYTES 0.8 thou/uL (0.0-1.2); ABSOLUTE NEUTROPHILS 4.9 thou/uL (1.6-8.1); BASOPHILS 0.9 %; EOSINOPHILS 3.9 %; HEMATOCRIT 30.8 % (37.0-47.0); HEMOGLOBIN 10.1 gm/dL (12.0-15.0); MCH 27.9 pg (26.0-34.0); MCHC 32.9 g/dL (28.0-37.0); MCV 84.8 fL (80.0-100.0); MONOCYTES 10.8 %; MPV 8.3 fl. (7.2-11.1); NUCLEATED RBCS 0 /100WBC; PLATELET COUNT* 303 thou/uL (150-400); POLYS 66.4 %; RBC 3.63 mil/uL (4.20-5.00); RDW-CV 15.4 % (10.5-14.5); WBC 7.4 thou/uL (4.0-11.0)
[2019-07-01 05:45] LABS: ALBUMIN 2.8 g/dL (3.4-5.0); CALCIUM 9.2 mg/dL (8.5-10.1); CREATININE 1.2 mg/dL (0.6-1.3); POTASSIUM 4.2 mmol/L (3.5-5.1); TOTAL BILIRUBIN 0.2 mg/dL (<0.1-1.0); TOTAL PROTEIN 7.1 g/dL (6.4-8.2)
[2019-07-01 07:30] VITALS: BP 141/48
--- NOTE | 2019-07-01 12:45 | NUR ---
Nutrition: Pt admitted with UTI/confusion. To disch to SNF when available. Wt: 163#. CHO controlled diet. Medx, labs, Hx noted. Appears at low risk.
--- NOTE | 2019-07-01 18:51 | NUR ---
SPOKE WITH PT DAUGHTER AND SHE STATED THAT ANGELICA ( ) STATED THAT THE PAPERWORK SENT WAS NOT THE CORRECT PAPERWORK NEEDED FOR TRANSFER TO [facility], SPOKE WITH HOUSE SUPERVISIOR GABRIELLE RN REGARDING PT AND SHE STATED THAT THE PAPERWORK ON OUR END WAS COMPLETED CORRECTLY. WILL PASS ON TO NOC SHIFT RN FOR NEXT SHIFTS. VSS THIS SHIFT, NO C/O PAIN, AMBULATING WITH PT/OT AND HOSPITAL STAFF THIS SHIFT. NO OTHER CONCERNS NOTED, HOURLY ROUNDING MAINTAINED THIS SHIFT. WILL CONTINUE TO MONITOR AND ASSESS
[2019-07-01 20:30] VITALS: BP 136/69
--- NOTE | 2019-07-02 07:02 | NUR ---
Alert and oriented x 4 but forgetful. She was up in the recliner at the start of the shift. She is up to the bathroom with assist x 1 and walker. Vitals are stable. She had ultram x 1 for rt knee pain. She has slept well this shift.
[2019-07-02 08:15] VITALS: BP 137/65
[2019-07-02 16:34] VITALS: BP 137/60
--- NOTE | 2019-07-02 16:35 | NUR ---
PATIENT ALERT AND ORIENTED X 4. VITAL SIGNS STABLE ON ROOM AIR. UP WITH ASSIST TO THE BATHROOM WITH WALKER. IV PATENT AND SALINE LOCKED. DENIES PAIN AND NAUSEA AT THIS TIME. TOLERATING DIET. FALL PRECAUTIONS IN PLACE AND BED ALARM ON. AWAITING PLACEMENT. HOURLY ROUNDS MAINTAINED THROUGHOUT THE SHIFT. CALL LIGHT WITHIN REACH. NURSING WILL CONTINUE TO MONITOR.
[2019-07-02 19:45] VITALS: BP 127/55
[2019-07-03 04:08] LABS: ABSOLUTE EOSINOPHILS 0.2 thou/uL (0.0-0.7); ABSOLUTE LYMPHOCYTES 1.5 thou/uL (0.8-5.3); ABSOLUTE MONOCYTES 0.8 thou/uL (0.0-1.2); ABSOLUTE NEUTROPHILS 4.7 thou/uL (1.6-8.1); BASOPHILS 0.6 %; EOSINOPHILS 3.3 %; HEMATOCRIT 28.7 % (37.0-47.0); HEMOGLOBIN 9.6 gm/dL (12.0-15.0); LYMPHOCYTES 20.3 %; MCH 28.5 pg (26.0-34.0); MCHC 33.6 g/dL (28.0-37.0); MCV 84.8 fL (80.0-100.0); MONOCYTES 11.4 %; MPV 7.8 fl. (7.2-11.1); NUCLEATED RBCS 0 /100WBC; PLATELET COUNT* 297 thou/uL (150-400); POLYS 64.4 %; RBC 3.38 mil/uL (4.20-5.00); RDW-CV 15.2 % (10.5-14.5); WBC 7.3 thou/uL (4.0-11.0)
[2019-07-03 04:58] LABS: ALBUMIN 2.7 g/dL (3.4-5.0); CALCIUM 8.6 mg/dL (8.5-10.1); CREATININE 1.3 mg/dL (0.6-1.3); POTASSIUM 4.1 mmol/L (3.5-5.1); TOTAL BILIRUBIN 0.2 mg/dL (<0.1-1.0); TOTAL PROTEIN 6.9 g/dL (6.4-8.2)
--- NOTE | 2019-07-03 06:01 | NUR ---
PT A&O X 4, VSS RA. MEDS GIVEN ORDERED. DENIED PAIN. UP TO THE BATHROOM WITH STANBY ASSIST. SLEEPING THROUGH THE NIGHT. HOURLY ROUNDING COMPLETED. WILL CONTINUE TO MONITOR.
[2019-07-03 07:35] VITALS: BP 137/72
[2019-07-03 11:06] VITALS: BP 137/72
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
[2019-07-03 16:18] VITALS: BP 137/72
--- NOTE | 2019-07-03 16:18 | NUR ---
PT GIVEN PRESCRIPTIONS, CARE NOTES, AND DISCHARGE INFORMATION. IV REMOVED. PT LEFT VIA WHEELCHAIR WITH NURSING STAFF TO HOME. FALL RISK PRECAUTIONS IN PLACE. HOURLY ROUNDING COMPLETED.
== END 2019-07-03 16:19 | disposition home health service (06) | DRG 689 ==
LOC: M.ERS 07:13 → M.2W 10:28 → M.TBA-ER 10:28 → M.2W 13:38 → M.ORTHSURG 06-25 13:49
PROVIDERS: Internal Medicine; Personal Emergency Response Attendant; ADMIT Internal Medicine
DX: N39.0 Urinary tract infection, site not specified (principal); G92 Toxic encephalopathy; R65.11 Systemic inflammatory response syndrome (SIRS) of non-infectious origin with acute organ dysfunction; I10 Essential (primary) hypertension; E78.5 Hyperlipidemia, unspecified; E03.9 Hypothyroidism, unspecified; M10.9 Gout, unspecified; E11.9 Type 2 diabetes mellitus without complications; J43.9 Emphysema, unspecified; F03.90 Unspecified dementia, unspecified severity, without behavioral disturbance, psychotic disturbance, mood disturbance, and anxiety; G89.29 Other chronic pain; M54.9 Dorsalgia, unspecified; I25.10 Atherosclerotic heart disease of native coronary artery without angina pectoris; Z88.5 Allergy status to narcotic agent; Z88.0 Allergy status to penicillin; Z88.8 Allergy status to other drugs, medicaments and biological substances; Z88.6 Allergy status to analgesic agent; Z88.2 Allergy status to sulfonamides; I25.2 Old myocardial infarction; Z79.4 Long term (current) use of insulin; Z79.84 Long term (current) use of oral hypoglycemic drugs